=== PATIENT | female | born 1995 | race Caucasian/White ===

== ENCOUNTER 2016-11-05 14:41 | Emergency (ER) | payer OTHER | END 2016-11-05 19:46 | disposition home or self-care (01) | LOC: ER 14:41 | DX: R10.12 Left upper quadrant pain (principal); R10.32 Left lower quadrant pain; R11.0 Nausea; Z79.899 Other long term (current) drug therapy | CPT/HCPCS: 36415; 96361; 96374; 96375; 96376 ==